=== PATIENT | female | born 1995 | race Caucasian/White ===

== ENCOUNTER 2018-04-04 10:07 | Emergency (ER) | payer SELFPAY ==
[2018-04-04] VITALS (14 sets, daily range): BP systolic 106–118; BP diastolic 55–78; PULSE 74–110; RESP 16; TEMP 38–38.8; O2SAT 93–100
--- NOTE | 2018-04-04 10:22 | W.ED.GENAD ---
Discharge Plan Disposition Patient Disposition: HOME Condition: Stable Discharge Details Chief Complaint: Nausea/Vomit/Diar Clinical Impression: Influenza A, Strep pharyngitis Primary Care Provider: Jes Adkins ED Provider: Jen Davis Home Meds and New Rx's Prescriptions: New penicillin V potassium 500 mg tablet 500 mg PO BID 10 Days Qty: 19 RF: 0 ondansetron 4 mg tablet,disintegrating 4 mg PO Q8H Qty: 9 RF: 0 Continued ProAir HFA 8.5 GM HFA aerosol inhaler 1 - 2 puff Inhalation Q4H PRN Qty: 1 RF: 6 venlafaxine 75 MG capsule,extended release 24hr 75 mg PO DAILY Qty: 90 RF: 4 triamcinolone acetonide 15 GM cream 15 gm Topical BID Qty: 1 RF: 2 sumatriptan succinate [Imitrex] 50 MG tablet 50 mg PO ONCE Qty: 6 RF: 2 Discharge Instructions Instructions: Penicillin V (By mouth), Ondansetron (By mouth), Oseltamivir (By mouth), Dehydration (ED), Pharyngitis (ED), Influenza (ED) Additional Instructions: Please return immediately to the emergency department if you develop any new or worsening symptoms or if you become otherwise concerned. It is extremely important that you are seen by your primary care doctor within the next 2-3 days as we discussed in follow-up for this visit. It was a pleasure taking care of you today. Stand Alone Forms: Work Release Referrals: Jes Adkins MD [Primary Care Provider] - Discharge Data Discharge Date/Time-TO BE ENTERED AT DEPARTURE: 04/04/18 14:57 Medical Decision Making Meng Johnson is a 22 y/o woman with history of asthma, depression who presented to the emergency department with 3 days of vomiting, generalized body aches, cough, fevers at home. On exam patient is well and nontoxic appearing but is tachycardic. Abdominal exam is benign. Lungs are clear to auscultation. Concern for strep pharyngitis, pneumonia, influenza versus other viral respiratory infection, dehydration, metabolic/lyte derangement. Exam/history is not consistent with PE, ACS, appendicitis or other acute emergent intra-abdominal etiology, acute aortic pathology, meningitis, sepsis. Plan for screening labs, UA/UPT, rapid strep, influenza swab, IV fluid hydration, IV Zofran. Will monitor and reassess. Influenza positive, strep positive, CXR negative. Pt feeling improved after IV fluid hydration, meds. We will continue to hydrate for her tachycardia. Pt reporting body aches. Plan for toradol. Continued hydration. Pt reports feeling much better, states she is ready for discharge home. Tachycardia resolved. Patient drank fluids in the emergency department without issue, has had no vomiting while here. Rx for Tamiflu and penicillin. I had a lengthy discussion with the patient regarding return to emergency department precautions, home care, and importance of outpatient follow-up with her PCP as soon as possible. Patient verbalized understanding of the plan and is amenable. Medical Records Medical records reviewed: Yes I reviewed the patient's medical records. Imaging Data Radiologic Study: Attestation: I personally reviewed and interpreted this imaging study as follows: Radiologist's impression: PA AND LATERAL CHEST: Comparison is made with 09/18/17. The heart size is normal. The lungs appear clear. No infiltrate or effusion is seen. IMPRESSION: Negative chest xray. Lab Data Lab results reviewed: Yes I reviewed the patient's lab results. 04/04/18 10:38 Nasopharynx Influenza Types A,B Antigen - Final Laboratory Tests Range/Units 04/04/18 04/04/18 04/04/18 10:45 10:45 11:25 WBC (4.4-10.8) k/cumm 4.45 RBC (4.00-5.20) m/cumm 4.82 Hgb (12.0-15.5) g/dL 14.8 Hct (36.0-46.0) % 43.7 MCV (80-95) fL 90.7 MCH (27.0-33.0) pg 30.7 MCHC (32.0-36.0) g/dL 33.9 RDW (11.7-14.6) % 12.8 Plt Count (130-400) x1000/uL 266 MPV (8.0-11.0) fL 9.4 Immature Gran % 0.4 Neutrophils % 66.8 Lymphocytes % 18.9 Monocytes % 13.3 Eosinophils % 0.2 Basophils % 0.4 Absolute Neutrophils (1.2-6.7) k/cumm 2.97 Absolute Lymphocytes (1.2-3.4) k/cumm 0.84 L Absolute Monocytes (0.11-0.7) k/cumm 0.59 Absolute Eosinophils (0.0-0.7) k/cumm 0.01 Absolute Basophils (0.0-0.2) k/cumm 0.02 Sodium (136-145) mmol/L 140 Potassium (3.5-5.1) mmol/L 3.3 L Chloride (98-107) mmol/L 101 Carbon Dioxide (21.0-32.0) mmol/L 27.9 Anion Gap (3-11) mmol/L 11.1 H BUN (7-18) mg/dL 7 Creatinine (0.55-1.02) mg/dL 0.83 Estimated GFR/1.73 m2 (mL/min/1.73m2) >= 60.00 Glucose (70-100) mg/dL 95 Calcium (8.5-10.1) mg/dL 8.8 Total Bilirubin (0.2-1.0) mg/dL 0.1 L AST (15-37) U/L 19 ALT (12-78) U/L 16 Alkaline Phosphatase (46-116) U/L 70 Total Protein (6.4-8.2) g/dL 7.9 Albumin (3.4-5.0) g/dL 3.7 Urine Color (Yellow) Yellow Urine Clarity Clear Urine pH (5-8) 7.5 Ur Specific [place] (1.005-1.025) 1.025 Urine Protein (Negative) mg/dL 30 H Urine Ketones (Negative) mg/dL Trace H Urine Blood (Negative) Negative Urine Nitrite (Negative) Negative Urine Bilirubin (Negative) Small H Urine Urobilinogen (Up TO 0.2) EU/dL 4.0 H Ur Leukocyte Esterase (Negative) Negative Urine RBC (0-2) 0-2 Urine WBC (0-5) HPF 0-2 Ur Epithelial Cells (Negative) HPF Moderate Urine Crystals (Negative) HPF Negative Urine Bacteria (Negative) HPF Few Urine Casts (Negative) LPF Negative Urine Mucus (Negative) Moderate Ur Culture Indicated? No Urine Glucose (Negative) mg/dL Negative HPI General Mode of arrival: ambulatory. Date/Time Provider Initiated Documentation: 04/04/18 10:22. Limitations to Documentation: no limitations. Information obtained by: patient, RN notes reviewed and old records reviewed. HPI Narrative: Meng Johnson is a 22 y/o woman with a history of depression, albuterol presenting to the emergency department with cough and vomiting. Patient reports that 3 days ago she developed sore throat, and then cough and vomiting later that day. Patient reports that she has had difficulty holding anything down, including water and zrtu-bwz-egycixs meds for fever since the vomiting began. Her last bowel movement was 4 days ago. Patient reports generalized muscle and joint pain in all extremities, no focal pain, no headache/chest pain/abdominal pain. No rash. 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 Patient reports that she has been trying to use her albuterol at home intermittently, although she vomits when she uses it. No recent travel. Related Data Home Medications Medication Instructions Recorded Confirmed ProAir HFA 1 - 2 puff INHALATION Q4H PRN #1 02/24/17 04/04/18 inhaler venlafaxine 75 mg PO DAILY #90 tab-cap 04/15/17 04/04/18 triamcinolone acetonide 15 gm TOPICAL BID #1 script 07/14/17 04/04/18 sumatriptan succinate [Imitrex] 50 mg PO ONCE #6 tab-cap 11/03/17 04/04/18 ondansetron 4 mg PO Q8H #9 tab 04/04/18 penicillin V potassium 500 mg PO BID 10 Days #19 tab 04/04/18 Previous Rx's Medication Instructions Recorded ProAir HFA 1 - 2 puff INHALATION Q4H PRN #1 02/24/17 inhaler venlafaxine 75 mg PO DAILY #90 tab-cap 04/15/17 triamcinolone acetonide 15 gm TOPICAL BID #1 script 07/14/17 sumatriptan succinate [Imitrex] 50 mg PO ONCE #6 tab-cap 11/03/17 ondansetron 4 mg PO Q8H #9 tab 04/04/18 penicillin V potassium 500 mg PO BID 10 Days #19 tab 04/04/18 Allergies Allergy/AdvReac Type Severity Reaction Status Date / Time gabapentin AdvReac Intermediate Really Unverified 04/04/18 10:32 sick nabumetone AdvReac Unknown HEADACHE; Unverified 04/04/18 10:32 N/V General Stated Complaint: Nausea/Vomit/Diar SASHA: 3 Review of Systems Review of Systems Constitutional: reports fevers Eyes: denies eye pain ENT: denies facial pain, dental pain, sore throat Cardiovascular: denies chest pain Respiratory: denies SOB, reports cough GI: denies abdominal pain, diarrhea, reports vomiting : denies flank pain MSK: denies back pain, neck pain, reports generalized arthralgias, myalgias Skin: denies rash Neuro: denies headaches, numbness, weakness [facility] Medical History Childhood asthma Surgical History Rotator Cuff Repair (~2011) Family History Mother Asthma Father No problems noted. Sister No problems noted. Sister Depression Sister Depression Brother No problems noted. Brother No problems noted. FAMILY HISTORY Diabetes Essential hypertension Neoplasm Social History Smoking/Tobacco Use Status: Never Exam Narrative Exam Narrative: Constitutional: well and cmr-fegrh-gybwxcgxg, pleasant, conversing normally HENT: head atraumatic, normocephalic normal inspection, mucous membranes moist, mild erythema of the posterior pharynx without intraoral lesion or edema of the tongue or pharynx Eyes: conjunctiva normal, sclera normal, pupils 3mm b/l Neck: no stridor, normal ROM, trachea midline Chest: normal inspection Resp: normal work of breathing, LCTAB Cardio: Tachycardic, normal rhythm, no murmur appreciated GI: abdomen soft, non-tender, non-distended Back: normal inspection, no rash Skin: warm, dry, normal color, no rash Neuro: alert, not altered, grossly non-focal, normal tone Ext: no edema Psych: normal mood, normal affect, normal behavior Course Vital Signs Temperature 38.5 C H 04/04/18 10:14 Pulse 110 H 04/04/18 10:14 Respiratory Rate 16 04/04/18 10:14 Blood Pressure 110/78 04/04/18 10:14 Pulse Oximetry 95 04/04/18 10:14 Temperature 38.5 C H 04/04/18 10:14 Temperature Source Skin 04/04/18 10:14 Pulse 110 H 04/04/18 10:14 Respiratory Rate 16 04/04/18 10:14 Blood Pressure 110/78 04/04/18 10:14 Blood Pressure Position Sitting 04/04/18 10:14 Pulse Oximetry 95 04/04/18 10:14 Oxygen Delivery Method Room Air 04/04/18 10:14 Oxygen Flow Rate 0 04/04/18 10:14 Pain Level 8 04/04/18 10:14
[2018-04-04] MEDS: Normal Saline Flush 10 ML SYR IVP (10:45)
[2018-04-04] MEDS: Normal Saline 1,000 ML 1000 ML IV (10:45)
[2018-04-04 10:56] LABS: Abs Immature Grans 0.02 k/cumm (0.0-0.09); Absolute Basophil Count 0.02 k/cumm (0.0-0.2); Absolute Eosinophil Count 0.01 k/cumm (0.0-0.7); Absolute Lymphocyte Count 0.84 k/cumm (1.2-3.4); Absolute Monocyte Count 0.59 k/cumm (0.11-0.7); Absolute Neutrophil Count 2.97 k/cumm (1.2-6.7); Basophils % 0.4; Eosinophils % 0.2; HCT 43.7 % (36.0-46.0); HGB 14.8 g/dL (12.0-15.5); Immature Grans % 0.4; Lymphocytes % 18.9; Mean Corp. HGB Concentration 33.9 g/dL (32.0-36.0); Mean Corpuscular Hemoglobin 30.7 pg (27.0-33.0); Mean Corpuscular Volume 90.7 fL (80-95); Mean Platelet Volume 9.4 fL (8.0-11.0); Monocytes % 13.3; Neutrophils % 66.8; Platelet Count 266 x1000/uL (130-400); RBC 4.82 m/cumm (4.00-5.20); RBC Distribution Width 12.8 % (11.7-14.6); White Blood Cell Count 4.45 k/cumm (4.4-10.8)
[2018-04-04] MEDS: Ondansetron 4 MG/2 ML VIAL IVP (11:00)
[2018-04-04 11:08] LABS: ALT 16 U/L (12-78); AST 19 U/L (15-37); Albumin 3.7 g/dL (3.4-5.0); Alkaline Phosphatase 70 U/L (46-116); Anion Gap 11.1 mmol/L (3-11); BUN 7 mg/dL (7-18); Bilirubin, Total 0.1 mg/dL (0.2-1.0); CO2 27.9 mmol/L (21.0-32.0); CREATININE 0.83 mg/dL (0.55-1.02); Calcium 8.8 mg/dL (8.5-10.1); Chloride 101 mmol/L (98-107); Glucose 95 mg/dL (70-100); Potassium 3.3 mmol/L (3.5-5.1); Sodium 140 mmol/L (136-145); Total Protein 7.9 g/dL (6.4-8.2)
[2018-04-04] MEDS: Lactated Ringers 1,000 ML 1000 ML IV ×2 (11:39→13:35)
[2018-04-04 11:46] LABS: Bilirubin Small (Negative); Blood Negative (Negative); Clarity Clear; Glucose Negative (Negative); Ketones Trace mg/dL (Negative); Leukocyte Esterase Negative (Negative); Nitrite Negative (Negative); Specific Gravity 1.025 (1.005-1.025); pH 7.5 (5-8)
[2018-04-04] MEDS: Acetaminophen 500 MG TAB 1000 MG PO (11:56)
[2018-04-04 12:02] LABS: Bacteria Few HPF (Negative); C & S Indicated? No; Casts Negative LPF (Negative); Crystals Negative HPF (Negative); Epithelial Cells Moderate HPF (Negative); Mucus Moderate (Negative); RBC 0-2 (0-2); WBC 0-2 HPF (0-5)
[2018-04-04] MEDS: Ketorolac 30 MG/ML VIAL IVP (12:02)
--- NOTE | 2018-04-04 12:21 | DI.RAD_ITS ---
SYMPTOM/DIAGNOSIS: COUGH PA AND LATERAL CHEST: Comparison is made with 09/18/17. The heart size is normal. The lungs appear clear. No infiltrate or effusion is seen. IMPRESSION: Negative chest xray.
[2018-04-04] MEDS: Oseltamivir 75 MG CAP PO (12:39)
[2018-04-04] MEDS: Penicillin V POTASSIUM 500 MG TAB PO (14:32)
--- NOTE | 2018-04-04 14:54 | PDOC.ERCMPRO ---
Care Management Progress Note 04/04-Dr. Magaly Davis requested assistance with a PCP (Dr. Hernández) f/u for tomorrow or Wednesday for positive flu and positive strep. Called [facility] and spoke with Kiara. Kiara stated she would ask Doreen to schedule appt. At the request of the provider, after 20 minutes, this CM called [facility] back and spoke with Vee. Vee stated Doreen was with another patient and that she would ask Doreen to call the patient at home with the follow up appt. Dr. Magaly Davis in agreement with the above.
--- NOTE | 2018-04-04 14:57 | CMPROGNOTE_ITS ---
Care Management Progress Note 04/04-Dr. Magaly Davis requested assistance with a PCP (Dr. Hernández) f/u for tomorrow or Wednesday for positive flu and positive strep. Called [facility] and spoke with Kiara. Kiara stated she would ask Doreen to schedule appt. At the request of the provider, after 20 minutes, this CM called [facility] back and spoke with Vee. Vee stated Doreen was with another patient and that she would ask Doreen to call the patient at home with the follow up appt. Dr. Magaly Davis in agreement with the above.
== END 2018-04-04 14:57 | disposition home or self-care (01) ==
PROVIDERS: Emergency Provider Student in an Organized Health Care Education/Training Program; PCP Family Medicine
DX: J02.0 Streptococcal pharyngitis (principal); J11.1 Influenza due to unidentified influenza virus with other respiratory manifestations
CPT/HCPCS: 36415; 80053; 81025; 87449; 87880; 96361; 96374; 96375; 99284; 71046; 81003; 81015; 85025; J1885; J2405

== ENCOUNTER 2018-04-18 15:29 | Outpatient (REF) | payer OTHER, SELFPAY ==
--- NOTE | 2018-04-18 14:00 | PAPFT_PTH ---
PATIENT: Meng Johnson LOC: [facility] U#:[id number] AGE/SX: 22/F ROOM: RE04/18/[address]: Jes Adkins MD : 1995 BED: DIS: 04/18/2018 SPEC #: [id number] RECD: 04/19/18 13:17 STATUS: JOSEPH REFiorella #: [id number] ELDER: 04/18/18 14:[address]: Jes Adkins DEPT: [facility] [place] Cytology RECD BY: Anya Vee Tissues: 1 - CX/ENDOCX FOR PAP SMEARS Procedures: PAP THIN PREP/UVM Screening HPV DNA PROBE Comments: [id number] (CHLAMYDIA/GC)
[2018-04-20 13:31] LABS: Chlamydia Result Negative; GC Result Negative; Specimen Description SEE COMMENTS
== END 2018-04-18 15:49 ==
LOC: LBN 15:29
PROVIDERS: PCP Family Medicine; Visit Provider Family Medicine
DX: Z11.3 Encounter for screening for infections with a predominantly sexual mode of transmission (principal); Z12.4 Encounter for screening for malignant neoplasm of cervix; Z11.51 Encounter for screening for human papillomavirus (HPV)
CPT/HCPCS: 87491; 87591; 88142; 87624

== ENCOUNTER 2019-04-10 12:04 | Emergency (ER) | payer SELFPAY ==
[2019-04-10 12:15] VITALS: BP 127/72; PULSE 84; RESP 18; TEMP 36.8; O2SAT 98
--- NOTE | 2019-04-10 12:47 | ED.GENADUL_ITS ---
Discharge Plan Disposition Patient Disposition: HOME Condition: Improving Discharge Details Chief Complaint: RespSymp Clinical Impression: Viral illness, Gastroenteritis Primary Care Provider: Jes Adkins ED Provider: Shelli Shelley Home Meds and New Rx's Prescriptions: New ondansetron HCl [Zofran] 4 mg tablet 4 mg PO Q8H PRN (Reason: nausea and vomiting) Qty: 7 RF: 0 No Action albuterol sulfate [ProAir HFA] 8.5 GM HFA aerosol inhaler 1 - 2 puff Inhalation Q4H PRN Qty: 1 RF: 6 venlafaxine 75 mg capsule,extended release 24hr 75 mg PO DAILY Qty: 90 RF: 4 Discharge Instructions Instructions: Gastroenteritis (ED), Viral Syndrome (ED) Additional Instructions: Drink plenty of fluids. Advance diet as tolerated. Avoid dairy in your diet until vomiting has resolved. Use nausea medication if needed for symptomatic relief. Use your inhalers as previously prescribed. Consider nasal saline rinses and or Flonase agmg-xnr-beivoca for symptomatic relief of nasal congestion. Recheck with PCP if not improving the next 3 to 5 days. Return for any worsening, concerns or alarming symptoms sooner if needed. Specifically observe for any signs of dehydration or for difficulty breathing. Observe for any sign of increasing abdominal pain. Return if needed Stand Alone Forms: Work Release Medical Decision Making Is a 23-year-old otherwise healthy patient with a history of childhood asthma presenting to the emergency room for 2 weeks of illness. Patient reports cold symptoms at onset of illness with associated dizziness and mild body ache. Patient reports she had been improving however she has had some intermittent associated vomiting which significantly worsened this morning. Patient reports several episodes of vomiting this morning which was different than the previous character she experienced over the last 2 weeks. Patient does report some intermittent diarrhea and abdominal cramping. Patient denies diarrhea associated this morning as she said no bowel movement today. Patient does report she is been trying to push fluids by mouth but does report onset of dizziness this morning. She did have dizziness at onset of illness 2 weeks ago which had since resolved. Patient reports return of dizziness this morning concern for possible dehydration. Patient also reports some worsening of her cough associated with wheezing and mild shortness of breath in the last 3 to 4 days. Patient reports nasal congestion and sore throat have improved. Denies to voice change or trismus. I suspect possibly this patient has a viral illness over the last 2 weeks and possibly contracted GI bug in the last 24 hours. We will plan to rehydrate this patient as she has had several episodes of vomiting this morning and provide nausea relief via IV Zofran. Will check influenza testing as well as labs and test. We will also plan to check chest x-ray as patient does have a history of pneumonia in the past and has been sick for the last 2 weeks with increasing cough in the last few days. Patient's reexamination reveals relief of nausea and abdominal pain. Reexamination of patient's abdomen reveals benign abdomen at this time. No peritoneal signs, rebound or guarding. Patient has tolerated fluids by mouth. Patient appears well at this time. Vital signs remained stable. Patient's labs are reviewed which are unremarkable for acute abnormality. Patient's urine testing is negative. Chest x-ray normal. Patient requesting discharge home at this time. The patient was stable and requested discharge. Prior to discharge, my usual and customary return precautions were reviewed with the patient - this included follow-up instructions and reasons to return to the Emergency Department if conditions worsens, does not improve as expected, or other new concerns arise. HPI General Date/Time Provider Initiated Documentation: 04/10/19 12:30 . HPI Narrative: This a 23-year-old patient presenting to the emergency room for 2 weeks of illness. Patient reports 2 weeks of cough and cold symptoms. Nasal congestion, sore throat, cough which have persisted for the last 2 weeks. Patient did report intermittent episodes of vomiting however reports since this morning innumerable episodes of vomiting today. Patient reports she has had intermittent diarrhea. Patient reports abdominal pain which is also intermittent. Patient reports GI symptoms significantly worsened this morning. Patient does report a viral symptoms for the most part had improved however cough persists. Patient denies measured fever or chills. Did report dizziness upon initial onset of illness which had since resolved and did return this morning. Patient does report mild shortness of breath, has been using her inhaler at home. Did not use it today. Patient denies chest pain or back pain. Reports intermittent headache none at this time. Patient reports she has continued to urinate normal amounts. Related Data Home Medications Medication Instructions Recorded Confirmed albuterol sulfate [ProAir HFA] 1 - 2 puff INHALATION Q4H PRN #1 02/24/17 04/10/19 inhaler venlafaxine 75 mg capsule,extended 75 mg PO DAILY #90 tab-cap 05/16/18 04/10/19 release 24 hr ondansetron HCl [Zofran] 4 mg PO Q8H PRN #7 tab 04/10/19 Previous Rx's Medication Instructions Recorded albuterol sulfate [ProAir HFA] 1 - 2 puff INHALATION Q4H PRN #1 02/24/17 inhaler venlafaxine 75 mg capsule,extended 75 mg PO DAILY #90 tab-cap 05/16/18 release 24 hr ondansetron HCl [Zofran] 4 mg PO Q8H PRN #7 tab 04/10/19 Allergies Allergy/AdvReac Type Severity Reaction Status Date / Time gabapentin AdvReac Intermediate Really Unverified 04/10/19 12:18 sick nabumetone AdvReac Unknown HEADACHE; Unverified 04/10/19 12:18 N/V General Stated Complaint: RespSymp SASHA: 3 Review of Systems All systems reviewed & are unremarkable except as noted in HPI and below Constitutional Constitutional: Denies chills, Reports fatigue, Denies fever(s), Reports headache(s) (Resolved) and Reports malaise ENT Ears, Nose, Mouth, and Throat: Reports otalgia (Resolved), Reports headache(s) (Resolved), Reports nasal congestion and Reports sore throat (Resolved) Respiratory Respiratory: Reports cough, Denies pain on inspiration, Denies pain with cough, Denies stridor and Reports wheezing Gastrointestinal Gastrointestinal: Reports abdominal pain, Reports cramping, Reports diarrhea, Reports nausea and Reports vomiting Genitourinary Genitourinary: Denies dysuria Neurologic Neurologic: Reports headache(s) (Resolved) Endocrine Endocrine: Reports fatigue Allergic/Immunologic Allergic/Immunologic: Reports wheezing PFSH Medical History Childhood asthma Surgical History Rotator Cuff Repair (~2011) right Social History Smoking/Tobacco Use Status: Never Alcohol Intake: never Drug use: Occasionally Substance use type: marijuana Household members: significant other Housing: apartment Pets and animals: Yes Pets and animals: cat(s) and dog(s) Sexually active: Yes Do you think of yourself as: straight/heterosexual What is your relationship status?: living with partner How often do you talk on the phone with friends or family?: decline to answer How often do you get together with friends or relatives?: never How often do you attend gnosticism or samaritan services?: decline to answer Do you belong to any clubs or organized social groups?: no Panel score (0-1 are the most socially isolated patients): 1 Frequency: does not exercise Soledad/Pentecostalism: No preference Special soledad needs: No Seatbelt use: always Helmet use: No Drive intox or ride w/intox school bus driver/teacher assistant: No Do you feel safe in your relationship?: Yes Exam Narrative Exam Narrative: CONST: in no acute distress. Well hydrated. Alert and oriented. HENMT: Head nomocephalic, normal to inspection. Atraumatic. Hearing grossly normal. TMs appear normal bilaterally, minimal pharyngeal erythema. No exudates. Uvula midline without edema EYES: General normal appearance. Alignment normal. Eyelids normal. Conjunctiva normal. NECK: Normal visual inspection. FROM. Trachea midline. No Midline tenderness. No cervical lymphadenopathy present at this time CHEST: Normal insepection of the chest. RESP: Normal respiratory effort. Speaking full sentences. No cough. No audible wheezing. No retractions. Breath sounds are clear, full and equal bilaterally. Scattered wheezing present without rhonchi or rales. CARDIO: No JVD. No murmur, regular rate and rhythm SKIN: Normal. Dry. No rashes. Course Vital Signs Vital signs: Vital Signs Temperature 36.8 C 04/10/19 12:15 Pulse 84 04/10/19 12:15 Respiratory Rate 18 04/10/19 12:15 Blood Pressure 127/72 04/10/19 12:15 Pulse Oximetry 98 04/10/19 12:15 Temperature 36.8 C 04/10/19 12:15 Temperature Source Temporal Artery Scan 04/10/19 12:15 Pulse 84 04/10/19 12:15 Respiratory Rate 18 04/10/19 12:15 Respiratory Effort Non-Labored 04/10/19 12:19 Respiratory Depth Normal 04/10/19 12:19 Blood Pressure 127/72 04/10/19 12:15 Blood Pressure Position Sitting 04/10/19 12:15 Pulse Oximetry 98 04/10/19 12:15 Oxygen Delivery Method Room Air 04/10/19 12:15 Oxygen Flow Rate 0 04/10/19 12:15 Pain Level 6 04/10/19 12:15
[2019-04-10] MEDS: Normal Saline 1,000 ML 1000 ML IV (13:10)
[2019-04-10] MEDS: Albuterol/Ipratropium 3 ML UPD VIAL UPD (13:10)
[2019-04-10] MEDS: Ondansetron 4 MG/2 ML VIAL IVP (13:11)
[2019-04-10 13:16] LABS: Abs Immature Grans 0.01 k/cumm (0.0-0.09); Absolute Basophil Count 0.03 k/cumm (0.0-0.2); Absolute Eosinophil Count 0.54 k/cumm (0.0-0.7); Absolute Lymphocyte Count 1.78 k/cumm (1.2-3.4); Absolute Monocyte Count 0.77 k/cumm (0.11-0.7); Absolute Neutrophil Count 5.58 k/cumm (1.2-6.7); Basophils % 0.3; Eosinophils % 6.2; HCT 42.1 % (36.0-46.0); HGB 14.1 g/dL (12.0-15.5); Immature Grans % 0.1 %; Lymphocytes % 20.4; Mean Corp. HGB Concentration 33.5 g/dL (32.0-36.0); Mean Corpuscular Hemoglobin 30.2 pg (27.0-33.0); Mean Corpuscular Volume 90.1 fL (80-95); Mean Platelet Volume 9.3 fL (8.0-11.0); Monocytes % 8.8; Neutrophils % 64.2; Platelet Count 371 x1000/uL (130-400); RBC 4.67 m/cumm (4.00-5.20); White Blood Cell Count 8.71 k/cumm (4.4-10.8)
[2019-04-10 13:47] LABS: ALT 14 U/L (14-59); AST 11 U/L (15-37); Albumin 3.4 g/dL (3.4-5.0); Alkaline Phosphatase 65 U/L (46-116); Anion Gap 8.9 mmol/L (3-11); BUN 7 mg/dL (7-18); Bilirubin, Total 0.2 mg/dL (0.2-1.0); CO2 27.1 mmol/L (21.0-32.0); CREATININE 0.66 mg/dL (0.55-1.02); Calcium 7.7 mg/dL (8.5-10.1); Chloride 107 mmol/L (98-107); Glucose 88 mg/dL (74-106); Potassium 3.6 mmol/L (3.5-5.1); Sodium 143 mmol/L (136-145); Total Protein 6.8 g/dL (6.4-8.2)
--- NOTE | 2019-04-10 13:55 | DI.RAD_ITS ---
EXAM: XR CHEST 2V PA LATERAL CLINICAL HISTORY: cough, r/o pneumonia. TECHNIQUE: 2D digital imaging was performed. COMPARISON: XR CHEST 2V PA LATERAL from 04/04/2018 FINDINGS: LUNGS: Clear. No pleural abnormality seen. HEART: Normal. MEDIASTINUM: Normal. OTHER FINDINGS:Normal. BONE:Normal. IMPRESSION: No acute pulmonary findings.
[2019-04-10 13:57] VITALS: BP 125/72; PULSE 74; RESP 16; TEMP 36.5; O2SAT 97
== END 2019-04-10 14:50 | disposition home or self-care (01) ==
PROVIDERS: Emergency Provider Physician Assistant; PCP Family Medicine
DX: R11.2 Nausea with vomiting, unspecified (principal); R05 Cough; B34.9 Viral infection, unspecified; K52.9 Noninfective gastroenteritis and colitis, unspecified
CPT/HCPCS: 36415; 80053; 81025; 87449; 94640; 99285; 71046; 85025; 99284; J2405; J7620

== ENCOUNTER 2019-07-18 12:22 | Outpatient (REF) | payer SELFPAY ==
--- NOTE | 2019-07-18 10:45 | PAPFT_PTH ---
PATIENT: Meng Johnson LOC: [facility] U#:[id number] AGE/SX: 23/F ROOM: RE07/18/[address]: Ayse Hyman, PhD CD REACTOR OPERATOR HEAD : 1995 BED: DIS: 07/18/2019 SPEC #: [id number] RECD: 07/19/19 12:13 STATUS: EDWARDNina REQ #: [id number] ELDER: 07/18/19 10:[address]: Ayse Hyman DEPT: [facility] Cytology RECD BY: Anya Vee ENTERED: 07/19/19 12:13 SP TYPE: PAPFT OTHR DR: Jes Adkins MD Tissues: 1 - CX/ENDOCX FOR PAP SMEARS Procedures: PAP THIN PREP/UVM Screening Comments: [id number]
[2019-07-18 20:22] LABS: Calculated LDL 173 mg/dL (<100); Cholesterol 238 mg/dL (<200); HDL Cholesterol 55 mg/dL (40-60); Triglyceride 52 mg/dL (<150)
== END 2019-07-18 12:42 ==
LOC: LBN 12:22
PROVIDERS: PCP Family Medicine; Visit Provider Nurse Practitioner
DX: Z13.220 Encounter for screening for lipoid disorders (principal); Z12.4 Encounter for screening for malignant neoplasm of cervix; Z11.51 Encounter for screening for human papillomavirus (HPV)
CPT/HCPCS: 80061; 88142

== ENCOUNTER → 2020-03-21 21:44 | Outpatient (REF) | payer SELFPAY ==
[2020-03-25 14:11] LABS: Chlamydia Result Negative (Negative); GC Result Negative (Negative)
== END ==
LOC: LBN 21:44
PROVIDERS: PCP Family Medicine; Visit Provider Nurse Practitioner Family
DX: R10.2 Pelvic and perineal pain (principal); N76.0 Acute vaginitis; N39.0 Urinary tract infection, site not specified; Z11.3 Encounter for screening for infections with a predominantly sexual mode of transmission
CPT/HCPCS: 87491; 87591; 87086; 87480; 87510; 87660

== ENCOUNTER 2020-06-27 03:30 | Outpatient (CLI) | payer SELFPAY ==
[2020-06-28 10:00] LABS: COVID-19 RT-PCR UVMMC Result Negative (Negative)
== END 2020-06-27 03:31 | disposition home or self-care (01) ==
LOC: LBO 03:30
PROVIDERS: PCP Family Medicine; Visit Provider Family Medicine
DX: Z20.822 Contact with and (suspected) exposure to COVID-19 (principal)
CPT/HCPCS: U0003

== ENCOUNTER 2020-07-26 10:43 | Emergency (ER) | payer OTHER, SELFPAY ==
[2020-07-26 10:48] VITALS: BP 125/71; PULSE 66; RESP 16; TEMP 36.7; O2SAT 99
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
== END 2020-07-26 11:18 | disposition home or self-care (01) ==
PROVIDERS: Emergency Provider Emergency Medicine; PCP Family Medicine
DX: T24.202A Burn of second degree of unspecified site of left lower limb, except ankle and foot, initial encounter (principal); X12.XXXA Contact with other hot fluids, initial encounter
CPT/HCPCS: 99282

== ENCOUNTER 2021-04-08 02:02 | Outpatient (CLI) | payer SELFPAY ==
[2021-04-08 08:39] LABS: HCT 42.6 % (36.0-46.0); HGB 13.7 g/dL (11.2-15.7); MCH 30.6 pg (27.0-33.0); MCHC 32.2 % (32.0-36.0); MCV 95.3 fL (80-95); MPV 8.9 fL (8.0-11.0); Platelet Count 377 10^3/uL (130-400); RBC 4.47 10^6/uL (3.93-5.22); RDW 12.3 % (11.7-14.6); RDW-SD 43.5 fL; WBC 5.84 10^3/uL (4.4-10.8)
[2021-04-08 08:51] LABS: Hemoglobin A1C 5.5 % (<5.7)
[2021-04-08 09:22] LABS: ALT 35 U/L (14-59); AST 27 U/L (15-37); Albumin 3.8 g/dL (3.4-5.0); Alkaline Phosphatase 59 U/L (46-116); Anion Gap 7.2 mmol/L (3-11); BUN 8 mg/dL (7-18); Bilirubin, Total 0.4 mg/dL (0.2-1.0); CO2 28.8 mmol/L (21.0-32.0); CREATININE 0.7 mg/dL (0.55-1.02); Calcium 8.7 mg/dL (8.5-10.1); Calculated LDL 147 mg/dL (<100); Chloride 103 mmol/L (98-107); Cholesterol 215 mg/dL (<200); Glucose 96 mg/dL (74-106); HDL Cholesterol 62 mg/dL (40-60); Potassium 4.2 mmol/L (3.5-5.1); Sodium 139 mmol/L (136-145); TSH (W/Ref FT4) 2.11 uIU/mL (0.36-3.74); Triglyceride 30 mg/dL (<150)
== END 2021-04-08 02:03 | disposition home or self-care (01) ==
LOC: LBO 02:02
PROVIDERS: Nurse Practitioner Family; PCP Family Medicine; Visit Provider Family Medicine
DX: I10 Essential (primary) hypertension (principal); E78.2 Mixed hyperlipidemia; I73.00 Raynaud's syndrome without gangrene
CPT/HCPCS: 36415; 80053; 80061; 85027; 83036; 84443

== ENCOUNTER 2021-05-03 13:52 | Emergency (ER) | payer SELFPAY ==
[2021-05-03 14:10] VITALS: BP 123/63; PULSE 90; RESP 14; TEMP 36.9; O2SAT 99
--- NOTE | 2021-05-03 14:15 | DI.RAD_ITS ---
Exam(s) XR SHOULDER RT COMPLETE 2+V EXAM: XR SHOULDER RT COMPLETE 2+V CLINICAL HISTORY: fall, right shoulder pain, hx of rotator cuff. TECHNIQUE: 2D digital imaging was performed of the right shoulder. Five images were obtained. AP, Grashey, Y-view and axillary views were obtained. COMPARISON: CR RIGHT SHOULDER 1 VIEW from 12/23/2011 FINDINGS: BONES: No acute fracture is present. No bony destructive lesion is seen. Postsurgical changes of prio r shoulder surgery. JOINTS: No dislocation present. SOFT TISSUE: Normal. IMPRESSION: No acute fracture or dislocation. DATA REPOSITORY: RADIATION DOSE DELIVERED:
--- NOTE | 2021-05-03 14:15 | DI.RAD_ITS ---
Exam(s) XR RIBS RT PA CHEST 3V EXAM: XR RIBS RT PA CHEST 3V CLINICAL HISTORY: right anterior chest wall pain, post fall yesterdy TECHNIQUE: 2D digital imaging was performed. COMPARISON: CR XR CHEST 2V PA LATERAL from 04/10/2019 FINDINGS: MEDIASTINUM: Normal. HEART: Normal. PULMONARY VASCULATURE: Normal. LUNGS: Clear. PLEURAL SPACE: No pleural effusion or pneumothorax. BONE:Within normal limits for the patient's age. Postsurgical changes are seen in the right shoulder . RIGHT RIBS: Normal. OTHER FINDINGS:There are bilateral nipple piercings an umbilical piercing. IMPRESSION: 1. No acute pulmonary findings. 2. Unremarkable right ribs. DATA REPOSITORY: RADIATION DOSE DELIVERED:
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
[2021-05-03] MEDS: Ketorolac 15 MG/ML VIAL IM (14:54)
[2021-05-03] MEDS: Cyclobenzaprine 10 MG TAB PO (14:54)
[2021-05-03] MEDS: Lidocaine 5% Patch 1 PATCH TP (15:26)
--- NOTE | 2021-05-03 15:45 | DI.VRAD_ITS ---
PROCEDURE INFORMATION: Exam: XR Right Ribs with PA Chest Exam date and time: 05/03/2021 3:07 PM Age: 25 years old Clinical indication: Other: Right anterior chest wall pain, post fall yesterday TECHNIQUE: Imaging protocol: XR Right ribs with PA chest. Views: 3 views COMPARISON: CR XR CHEST 2V PA LATERAL 04/10/2019 1:51 PM FINDINGS: Lungs: Unremarkable. No consolidation. Pleural spaces: Unremarkable. No pleural effusion. No pneumothorax. Heart/Mediastinum: Unremarkable. No cardiomegaly. Bones/joints: Postsurgical change right shoulder. Bony alignment is anatomic. No evidence for fracture. Soft tissues: There are bilateral nipple piercings. Other findings: Umbilical piercing noted. IMPRESSION: No evidence for fracture. Dictated and Authenticated by: Delisa Trinidad MD. Ordering:COBY Carrasquillo MD
--- NOTE | 2021-05-03 15:47 | DI.VRAD_ITS ---
PROCEDURE INFORMATION: Exam: XR Right Shoulder Exam date and time: 05/03/2021 2:25 PM Age: 25 years old Clinical indication: Other: Fall, right shoulder pain, HX of rotator cuff injuries TECHNIQUE: Imaging protocol: XR Right shoulder. Views: 2 or more views. COMPARISON: CR XR RIBS RT PA CHEST 3V 05/03/2021 3:12 PM FINDINGS: Bones/joints: Postsurgical change noted right humeral head. Bony alignment is anatomic without evidence for fracture. Soft tissues: Normal. IMPRESSION: No evidence for acute posttraumatic abnormality. Dictated and Authenticated by: Delisa Trinidad MD. Ordering:COBY Carrasquillo MD
[2021-05-03 16:43] VITALS: BP 111/72; PULSE 83; TEMP 37.1; O2SAT 97
== END 2021-05-03 17:31 | disposition home or self-care (01) ==
PROVIDERS: Emergency Provider Emergency Medicine; PCP Family Medicine
DX: S46.811A Strain of other muscles, fascia and tendons at shoulder and upper arm level, right arm, initial encounter (principal); S20.211A Contusion of right front wall of thorax, initial encounter; W00.0XXA Fall on same level due to ice and snow, initial encounter
CPT/HCPCS: 96372; 99284; 71046; 71100; 73030; 99283; J1885

== ENCOUNTER 2021-09-19 11:55 | Emergency (ER) | payer SELFPAY ==
[2021-09-19 12:11] VITALS: BP 137/85; PULSE 61; RESP 14; TEMP 37.1; O2SAT 99
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
[2021-09-19 13:33] VITALS: PULSE 86; RESP 14; O2SAT 99
== END 2021-09-19 13:34 | disposition home or self-care (01) ==
PROVIDERS: Emergency Provider Physician Assistant; PCP Family Medicine
DX: K04.7 Periapical abscess without sinus (principal); K02.9 Dental caries, unspecified
CPT/HCPCS: 99283; 99284

== ENCOUNTER 2021-11-03 12:37 | Outpatient (REF) | payer SELFPAY | END 2021-11-03 12:38 | disposition home or self-care (01) | LOC: LBN 12:37 | PROVIDERS: PCP Family Medicine; Visit Provider Physician Assistant | DX: J02.9 Acute pharyngitis, unspecified (principal) | CPT/HCPCS: 87070 ==

== ENCOUNTER 2021-11-25 16:37 | Emergency (ER) | payer SELFPAY ==
[2021-11-25 16:40] VITALS: BP 127/79; PULSE 102; RESP 16; TEMP 36.8; O2SAT 99
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
== END 2021-11-25 17:37 | disposition home or self-care (01) ==
PROVIDERS: Emergency Provider Physician Assistant; PCP Family Medicine
DX: K04.7 Periapical abscess without sinus (principal); K12.30 Oral mucositis (ulcerative), unspecified
CPT/HCPCS: 81025; 99283; 99284

== ENCOUNTER 2023-02-23 12:18 | Outpatient (REF) | payer OTHER, SELFPAY ==
--- NOTE | 2023-02-23 12:00 | PAPFT_PTH ---
PATIENT: Meng Johnson LOC: [facility] U#:[id number] AGE/SX: 27/F ROOM: RE02/23/[address]: Geovany Whitney DNP : 1995 BED: DIS: 02/23/2023 SPEC #: [id number] RECD: 02/24/23 13:11 STATUS: JOSEPH REQ #: [id number] ELDER: 02/23/23 12:[address]: Geovany Arellano DEPT: [facility], [facility] Cytology RECD BY: Anya Vee Tissues: 1 - CX/ENDOCX FOR PAP SMEARS Procedures: PAP THIN PREP/[facility] Screening HPV DNA PROBE Comments: [id number]
== END 2023-02-23 12:19 | disposition home or self-care (01) ==
LOC: LBN 12:18
PROVIDERS: PCP Nurse Practitioner Family; Visit Provider Nurse Practitioner Family
DX: Z12.4 Encounter for screening for malignant neoplasm of cervix (principal); Z72.51 High risk heterosexual behavior
CPT/HCPCS: 88142; 87624

== ENCOUNTER 2023-04-28 11:39 | Day surgery (SDC) | payer OTHER, SELFPAY ==
[2023-04-28] VITALS (8 sets, daily range): BP systolic 117–135; BP diastolic 63–84; PULSE 77–125; RESP 15–24; TEMP 36.6–37; O2SAT 93–100; BMI 27.5
--- NOTE | 2023-04-28 13:01 | W.ANESPRE ---
General Info Date of Service Date Performed: 04/28/23 Height: 5 ft 2.5 in Weight: 69.3 kg Body Mass Index (BMI): 27.5 Surgical Procedure: Operation Date: 04/28/23 14:25 Proposed Procedure Side Surgeon p Partial Fasciotomy Lower Leg Left Arnel Jesus MD Meds Allergies and Home Medications Allergies Allergy/AdvReac Type Severity Reaction Status Date / Time gabapentin AdvReac Intermediate Really Verified 04/28/23 12:05 sick nabumetone AdvReac Unknown HEADACHE; Verified 04/28/23 12:05 N/V Home Medication Medication Instructions Recorded albuterol sulfate 90 mcg/actuation 1 - 2 puff inhalation Q4H PRN #18 05/29/19 aerosol inhaler (ProAir HFA) grams norgestimate-ethinyl estradiol 1 tab PO DAILY #84 tabs 02/23/23 0.18 mg/0.215mg/0.25mg-35 mcg(28)tablet venlafaxine 75 mg capsule,extended 150 mg (2 x 75 mg) PO DAILY #90 02/23/23 release 24 hr tab-caps celecoxib 100 mg capsule 100 mg PO BID #60 caps 04/07/23 Current Visit Medications: Current Medications Generic Name Dose Route Start Last Admin Trade Name Freq PRN Reason Stop Dose Admin Ringer's Solution 1,000 mls @ 80 mls/hr 04/28/23 06:00 IV 04/28/23 23:59 INFUSION LISSETH Cefazolin Sodium/Dextrose 2 gm in 50 mls @ 100 mls/hr 04/28/23 06:00 Ancef Duplex IVPB 04/28/23 23:59 PREOP LISSETH IV Miscellaneous Supplies 1 each 04/28/23 06:00 Iv Access IV 04/28/23 23:59 DIRECTED LISSETH Sodium Chloride 0 ml 04/28/23 06:00 Normal Saline Flush 10 Ml Syr IV 04/28/23 23:59 PRN PRN Sodium Chloride 0 ml 04/28/23 06:00 Normal Saline 10 Ml Vial IJ 04/28/23 23:59 DIRECTED PRN Sterile Water 0 ml 04/28/23 06:00 Water,Injection,Sterile 10 Ml Vial IJ 04/28/23 23:59 DIRECTED PRN PFSH Active Problems Active Problems: Problem Status Onset Code Hernia of muscle through fascia of lower leg M62.89 Raynaud's phenomenon I73.00 Superficial partial thickness burn of lower extremity T24.209A Papanicolaou smear of cervix with positive high risk human papilloma virus (HPV) test 04/27/17 R87.810 Medical History Medical History Generalized anxiety disorder Major depressive disorder Hyperlipidemia Surgical History Surgical History S/P right rotator cuff repair (~2014) 2010 and 2014 Tobacco Smoking/Tobacco Use Status: Never Passive smoking exposure: Yes Alcohol Alcohol Intake: never Substance Use Substance use: Daily Substance use type: marijuana Prental History History 0 Para Hx # Term Pregnancies Multiple births Hx # Pregnancies Ectopic pregnancies AB induced Hx Number of Living Children AB spontaneous Vital Signs and Lab Results Vital Signs Most Recent Vital Signs in EMR: Most Recent Vital Signs Temp Pulse Resp BP Pulse Ox 37 C 97 H 16 133/84 100 04/28/23 11:50 04/28/23 11:50 04/28/23 11:50 04/28/23 11:50 04/28/23 11:50 Point of Care Results Point of Care Results: POC- Test(urine) Negative 04/28/23 11:55 Lab Results Blood Type / Crossmatch: No Data to Display Complete Blood Count: No Data to Display Complete Metabolic Panel: No Data to Display Liver Function Panel: No Data to Display Coagulation Panel: No Data to Display Cardiac Panel: No Data to Display Arterial Blood Gas: No Data to Display Venous Blood Gas: No Data to Display Pancreas Panel: No Data to Display Thyroid Panel: No Data to Display Infectious Disease: No Data to Display Blood Cultures: No Data to Display Toxicology Panel: No Data to Display Panel: No Data to Display Anesthesia Assessment and Plan Anesthesia History Personal History: PONV and Delayed Emergence Family History: No Family History of Anesthesia Complications and Other Exercise Tolerance Exercise Tolerance: Metabolic Equivalents>4 Pertinent Negatives Pertinent Negatives: No Symptoms of GERD, No Major Cardiovascular Symptoms or Complaints and No Major Pulmonary Symptoms or Complaints Cardiac & Pulmonary Exam Cardiac Exam: Normal S1/S2 Heart Sounds Pulmonary Exam: Clear Bilateral Breath Sounds Implantable Cardiac Device Does patient have a Pacemaker or an ICD?: No Airway Exam Known Difficult Airway: No Mallampati Class: 2 Mouth Opening: Narrow (< 3cm) Thyromental Distance: Greater than 3 cm Neck Range of Motion: Full ROM Neck Circumference: Normal Teeth Condition: Normal Dentition ASA Classification ASA Score: ASA 2 Emergency Case?: No NPO Status NPO Status: NPO Clears >2 hours, Solids >8 hours Status Status: Negative HCG Anesthesia Plan Resuscitation Status: Full Code Anesthesia Technique: General Anesthesia Airway Planned: LMA Monitors Used: Standard Monitors
[2023-04-28] MEDS: Lactated Ringers 1,000 ML 80 ML IV (13:02)
[2023-04-28] MEDS: ceFAZolin 2 GM/50 ML BAG IVPB (13:18)
--- NOTE | 2023-04-28 13:46 | W.PM.DSUDISC ---
Date of service: 04/28/23 Time of Service: 13:46 Discharge Plan Disposition Patient Disposition: Home Condition: Good Discharge Details Reason For Visit: Fasciotomy Left lower leg Attending Provider: Arnel Jesus Primary Care Provider: Geovany Arellano Home Meds and New Rx's Prescriptions: New hydrocodone-acetaminophen 5-325 mg tablet 1 tab PO Q6H PRN (Reason: pain) Qty: 8 0RF acetaminophen 500 mg tablet 1,000 mg PO TID Qty: 90 0RF Continued venlafaxine 75 mg capsule,extended release 24hr 150 mg PO DAILY Qty: 90 3RF Rx Instructions: do not fill at this time albuterol sulfate [ProAir HFA] 90 mcg/actuation HFA aerosol inhaler 1 - 2 puff Inhalation Q4H PRN Qty: 18 6RF celecoxib 100 mg capsule 100 mg PO BID Qty: 60 0RF No Action norgestimate-ethinyl estradiol 0.18/0.215/0.25 mg-35 mcg (28) tablet 1 tab PO DAILY Qty: 84 3RF Discharge Instructions Additional Instructions: Lower Leg Fasciotomy Discharge Instructions Activity: You may weight bear as tolerated. You should keep the leg elevated as much as possible. You should wear the MARC wrap at all times but may remove it for hygiene purposes after three days. Dressings: You should keep the initial dressing on for at least 3 days. After 3 days, you may remove it and get it wet in the shower. You should wear the MARC wrap for comperssion at all times except for hygiene purposes after three days until your follow-up appointment. Medications: - You should take Tylenol and continue your Celebrex around the clock for baseline pain. - You have been prescribed a stronger narcotic, Hydrocodone, for breakthrough pain. Follow-up: 2 weeks Stand Alone Forms: Anesthesia Discharge Inst., Akila Beltrán ([facility]) Referrals: Arnel Jesus MD [ [facility] STAFF PHYSICIAN] - 05/10/23 2:00 pm Equipment/Supplies: Partial Weight Bearing Crutches Activity:: Activity as Tolerated Shower/Bathe:: 72 hours Diet:: As Tolerated Discharge Orders Discharge Orders: Discharge Order (Routine); Ordered 04/28/23 Ordered By: Jabari Perdomo
--- NOTE | 2023-04-28 14:25 | ROE_ITS ---
Date of service: 04/28/23 Time of Service: 13:30 Operative Note Operative Note DATE OF PROCEDURE: 04/28/23 PRE-OP DIAGNOSIS: Muscle Hernation and Fascial Defect - Left Leg POST-OP DIAGNOSIS: same PROCEDURE: Anterior compartment fasciotomy, left leg SURGEON: Arnel Jesus ANESTHESIA TYPE: General LMA/ETT Refer to Anesthesia Record ESTIMATED BLOOD LOSS: 5 PATHOLOGY: none sent TOURNIQUET TIME: 0 COMPLICATIONS: None Patient was transported to: PACU Patient's condition: stable Indications: Meng is a 27-year-old female who presented to the office for worsening left leg pain. She had an ultrasound which showed defects of the anterior compartment and is in these locations where she hurt. This was thought to repr esent muscle herniation and strangulation to the defects. Therefore, I offered compartment release to treat the symptoms. I discussed the technical details of the surgery. I reviewed the potential complications to include continued symptoms, stiffness, pain, damage to nerves or vessels, cosmetic deformity, blood clot. Despite these risk, she elected to proceed. Findings: The 2 areas of concern were identified. 1 was a defect about 1 and half centimeters in length adjacent to the exit of the superficial peroneal nerve the other 1 was slightly more proximal which also seem to have some nerve going towards the skin and was about 1 cm in diameter. These 2 defects were connected after protecting the nerve structures and the majority of the intra compartment was released. Procedure Description: Meng was greeted in the preoperative holding area. I then he was confirmed the correct site was identified and marked. The consent was reviewed the patient and signed. She was taken to the operating room placed in the supine position. All bony prominences well-padded. The left leg was placed onto a bone foam ramp with a bump underneath the left hip. In general anesthetic was administered. Prophylactic antibiotics in the form of cefazolin were given. A timeout was performed for safe surgery. The left leg was then prepped ChloraPrep and draped in a standard fashion. The areas of fascial defect were marked on the skin in conjunction with the patient in the preoperative area. This was used as a rough landmark and an incision connecting these 2 areas was made, approximate 6 cm in length. The skin, subcutaneous tissues were then injected with 20 cc of 0.5% bupivacaine with epinephrine. Once the skin was incised blunt dissection was carried down deep to identify the fascia. Utilizing a lap pad I cleared the fascia of the anterior compartment. Beginning distally I evaluated the fascia for the superficial peroneal nerve. The first marked fascial defect corresponded to the exit of the superficial peroneal nerve. The nerve was identified and retracted out of the way. The fascia overlying the nerve was elevated and the fascia was slowly incised away from the nerve. This was done both proximally distally with direct visualization. The nerve was then retracted and was clearly seen. The anterior compartment fascia was then split from this location distally using Metzenbaum scissors. Attention was then turned to the more proximal aspect of the wound. A secondary defect was then identified. This area seem to have a nerve structure going to the skin out of the anterior compartment. Once again the fasciotomy is connected to this location and direct visualization. With this nerve structure dissected out the way I then continued to release the anterior compartment proximally as far as a scissors would reach. There is no defect in the muscle seen. There is no significant bleeding. The wound was then irrigated with normal saline. The deep tissues were closed with 2-0 Vicryl followed by the skin with a running 4-0 Monocryl in subcuticular fashion. This was reinforced with skin glue. A Mepilex silver dressing was placed over the wound. A compressive Josh wrap was applied to the leg. At the end the case all counts are correct. She tolerated the procedure well and was transferred back to the PACU in stable condition.
--- NOTE | 2023-04-28 14:32 | W.ANESPOSTOP ---
Postoperative Evaluation Date, Time and Location Date Performed: 04/28/23 Time Performed: 14:32 Patient Location: PACU Vital Signs Most Recent Imported Vital Signs: Most Recent Vital Signs Temp Pulse Resp BP Pulse Ox 36.6 C 96 H 16 133/72 100 04/28/23 14:02 04/28/23 14:12 04/28/23 14:12 04/28/23 14:12 04/28/23 14:12 Pain Score Most Recent Pain Score: Most Recent Pain Score Pain Level 0 04/28/23 14:12 Assessment Mental Status: Awake (Alert & Oriented to Patient Baseline) Airway and Respiratory Function: Patent airway with normal (patient baseline) respiratory exam Cardiovascular Function: Hemodynamically Stable Hydration Status: Adequately Hydrated Nausea & Vomiting: No Nausea or Vomiting Pain: Pt. Denies Any Pain Peripheral Nerve Block: Patient did not receive a nerve block
== END 2023-04-28 15:38 | disposition home or self-care (01) ==
PROVIDERS: PCP Nurse Practitioner Family; Visit Provider Student in an Organized Health Care Education/Training Program
PROC: (CPT 27600; principal; 2023-04-28 14:15)
DX: M62.89 Other specified disorders of muscle (principal); I73.00 Raynaud's syndrome without gangrene
CPT/HCPCS: 27600; 81025; J0690; J1100; J1885; J2250; J2405; J2704

== ENCOUNTER 2024-10-25 16:06 | Emergency (ER) | payer OTHER, SELFPAY ==
[2024-10-25 16:08] VITALS: BP 138/86; PULSE 92; RESP 18; TEMP 36.5; O2SAT 98
--- NOTE | 2024-10-25 16:41 | ED.GENADUL_ITS ---
Discharge Plan Disposition Patient Disposition: Home Condition: Stable Discharge Details Clinical Impression: Pain due to dental caries, Submandibular gland swelling Primary Care Provider: Geovany Arellano ED Provider: Diamond Marrero Home Meds and New Rx's Prescriptions: New amoxicillin-pot clavulanate 875-125 mg tablet 1 tab PO BID 10 Days Qty: 20 0RF Rx Instructions: Take 1 tablet by twice daily x 10 days No Action Benadryl Itch Stopping 1-0.1 % cream 1 applic topical QID PRN (Reason: itching) Qty: 28.3 0RF albuterol sulfate [ProAir HFA] 90 mcg/actuation HFA aerosol inhaler 1 - 2 puff Inhalation Q4H PRN Qty: 18 6RF norgestimate-ethinyl estradiol 0.18/0.215/0.25 mg-35 mcg (28) tablet 1 tab PO DAILY Qty: 84 3RF venlafaxine 150 mg capsule,extended release 24hr 150 mg PO DAILY Qty: 90 3RF norgestimate-ethinyl estradiol [Tri-Linyah] 0.18/0.215/0.25 mg-0.035mg (28) tablet Patient Comments: TAKE ONE TABLET BY MOUTH EVERY DAY Discharge Instructions Instructions: Swelling, Dental Pain ED Additional Instructions: Please take the antibiotic as prescribed twice daily with yogurt or a probiotic. Please use the topical benzocaine gel up to 3 times daily to the affected area as directed. You do still need to see a dentist. Please take Tylenol or Ibuprofen with food every 4-6 hours as needed for pain and swelling. Follow up with dentist/primary care provider in 7 days. Return to ED sooner if any worsening swelling, redness, drainage, fever problems swallowing or concerns. Discharge Data Discharge Date/Time-TO BE ENTERED AT DEPARTURE: 10/25/24 16:56 HPI General Mode of arrival: ambulatory . Date/Time Provider Initiated Documentation: 10/25/24 16:16 . Limitations to Documentation: no limitations . Information obtained by: patient, RN notes reviewed and old records reviewed . HPI Narrative: 28-year-old female presents with chief complaint of left lower molar tooth pain, swelling in her left lower mandibular jaw, she is also complaining of some tenderness which extends to the chin. She does have a a dental carry noted #15 left lower molar. No Fluctuance abscess or drainage noted. She does have a small amount of lymphadenopathy submandibularly versus inflammed salivary gland. Related Data Home Medications ?Medication ?Instructions ?Recorded ?Confirmed albuterol sulfate 90 mcg/actuation 1 - 2 puff inhalati on Q4H PRN #18 05/29/19 10/25/24 aerosol inhaler (ProAir HFA) grams diphenhydramine-zinc acetate 1 1 applic topical QID WI N itching 05/07/23 10/25/24 %-0.1 % topical cream (Benadryl #28.3 grams Itch Stopping) Held on 10/25/24. Instructions: Pt Stopped/Never Started norgestimate-ethinyl estradiol 1 tab PO DAILY #84 tabs 03/30/24 0.18mg/0.215mg/0.25mg-0.035mg(28)tablet venlafaxine 150 mg 150 mg PO DAILY #90 tab-caps 09/29/24 10/25/24 capsule,extended release 24 hr amoxicillin 875 mg-potassium 1 tab PO BID Dental Infec tion 10 10/25/24 clavulanate 125 mg tablet days #20 tabs norgestimate-ethinyl estradiol tab 10/25/24 0.18mg/0.215mg/0.25mg-0.035mg(28)tablet (Tri-Linyah) Previous Rx's ?Medication ?Instructions ?Recorded albuterol sulfate 90 mcg/actuation 1 - 2 puff inhalati on Q4H PRN #18 05/29/19 aerosol inhaler (ProAir HFA) grams diphenhydramine-zinc acetate 1 1 applic topical QID WI N itching 05/07/23 %-0.1 % topical cream (Benadryl #28.3 grams Itch Stopping) Held on 10/25/24. Instructions: Pt Stopped/Never Started norgestimate-ethinyl estradiol 1 tab PO DAILY #84 tabs 03/30/24 0.18mg/0.215mg/0.25mg-0.035mg(28)tablet venlafaxine 150 mg 150 mg PO DAILY #90 tab-caps 09/29/24 capsule,extended release 24 hr amoxicillin 875 mg-potassium 1 tab PO BID Dental Infec tion 10 10/25/24 clavulanate 125 mg tablet days #20 tabs Allergies Allergy/AdvReac Type Severity Reaction Status Date / Time gabapentin AdvReac Intermediate Really Verified 10/25/24 16:11 sick nabumetone AdvReac Unknown HEADACHE; Verified 10/25/24 16:11 N/V General Stated Complaint: GenMedical SASHA: 3 Review of Systems All systems reviewed & are unremarkable except as noted in HPI and below Constitutional Constitutional: Reports as per HPI, Denies chills and Denies fever(s) ENT Ears, Nose, Mouth, and Throat: Reports as per HPI, Reports dental pain, Denies hoarseness, Denies neck mass, Denies neck pain and Reports other (Jaw swelling, left lateral ) Cardiovascular Cardiovascular: Denies dyspnea and Denies dyspnea on exertion Respiratory Respiratory: Reports as per HPI, Denies cough, Denies dyspnea and Denies dyspnea on exertion Musculoskeletal Musculoskeletal: Denies neck pain Exam HENMT Head: normal to inspection Head images: 2 1. Small swelling, mildly tender to palpation General nose exam: external nose normal Face and sinus: normal facial exam, sinuses nontender, face symmetric and no fluctuance Face images: 2 1. Small amount of swelling Mouth: oral mucosae normal, lip normal, tongue normal, no drooling and breath no malodorous Course Vital Signs Vital signs: Vital Signs Temperature 36.5 C 10/25/24 16:08 Pulse 92 H 10/25/24 16:08 Respiratory Rate 18 10/25/24 16:08 Blood Pressure 138/86 10/25/24 16:08 Pulse Oximetry 98 10/25/24 16:08 Temperature 36.5 C 10/25/24 16:08 Pulse 92 H 10/25/24 16:08 Respiratory Rate 18 10/25/24 16:08 Blood Pressure 138/86 10/25/24 16:08 Pulse Oximetry 98 10/25/24 16:08 Pain Level 8 10/25/24 16:08 Medical Decision Making 28-year-old female presents with chief complaint of left lower molar tooth pain, swelling in her left lower mandibular jaw, she is also complaining of some tenderness which extends to the chin. She does have a a dental carry noted #15 left lower molar No Fluctuance abscess or drainage noted. She does have a small amount of lymphadenopathy submandibularly versus inflammed salivary gland. Will prescribe Augmentin first dose given here and give benzocaine topical HurriCaine gel for home use. Discussed home care, follow-up with dentist which patient states she does have a dentist. Discussed return instructions verbalized understanding. This text was generated using [employer] system, please disregard any oddities of phrase or misspellings. PFSH All Active Problems (Updated 10/25/24 @ 16:46 by Diamond Marrero NP) Submandibular gland swelling (Acute) Pain due to dental caries (Acute) Left leg pain (Acute) Raynaud's phenomenon (Acute) 03/2021 Superficial partial thickness burn of lower extremity (Acute) Papanicolaou smear of cervix with positive high risk human papilloma virus (HPV) test (Acute 04/27/17) repeat in one year neg 2018, repeated 2019, at every 3 years if 2020.within normal limits Medical History Generalized anxiety disorder Major depressive disorder Hyperlipidemia Surgical History Hernia of muscle through fascia of lower leg LEFT S/P partial fasciotomy: 04/28/2023 S/P right rotator cuff repair (~2014) 2010 and 2014 Family History Mother Asthma Alcohol abuse Hypertension Father Alcohol abuse Sister No problems noted. Sister No problems noted. Sister Depression Brother Hypertension Brother No problems noted. Maternal Grandfather No problems noted. Maternal Grandmother Breast cancer 40s Paternal Grandfather Cancer Unknown type Hyperlipidemia Paternal Grandmother Breast cancer Social History Smoking/Tobacco Use Status: Never Smoking risk assessment performed?: Yes Alcohol Intake: never Drug use: Daily Substance use type: marijuana Caregiver/Support person: No Household members: significant other Housing: apartment Communication Needs: None Do you need help understanding health information?: Never Pets and animals: Yes Pets and animals: cat(s), dog(s) and other Details: turtle Sexually active: Yes Do you think of yourself as: straight/heterosexual Current gender identity: male What is your relationship status?: living with partner How often do you talk on the phone with friends or family?: once per week How often do you get together with friends or relatives?: once per week How often do you attend holiness or roman catholic services?: decline to answer Do you belong to any clubs or organized social groups?: no Panel score (0-1 are the most socially isolated patients): 1 What type of physical activity do you participate in: decline to answer Duration: decline to answer Frequency: decline to answer Soledad/Hindu: None Special soledad needs: No Seatbelt use: sometimes Helmet use: No Drive intox or ride w/intox auto carrier driver: No Do you feel safe at home: Yes Do you feel safe in your relationship?: Yes History History 2 0 Para Hx # Term Pregnancies Multiple births Hx # Pregnancies Ectopic pregnancies AB induced Hx Number of Living Children AB spontaneous
[2024-10-25] MEDS: Benzocaine 20% Gel 30 GM JAR MM (16:47)
[2024-10-25] MEDS: Amoxicillin 875/Clav. 125 TAB PO (16:47)
[2024-10-25 16:54] VITALS: BP 138/86; PULSE 92; RESP 18; TEMP 36.5; O2SAT 98
== END 2024-10-25 16:56 | disposition home or self-care (01) ==
PROVIDERS: Emergency Provider Registered Nurse Emergency; PCP Nurse Practitioner Family
DX: R68.84 Jaw pain (principal); R60.0 Localized edema; K02.9 Dental caries, unspecified
CPT/HCPCS: 99283 ×2